=== PATIENT | male | born 1940 | race Caucasian/White ===

== ENCOUNTER 2019-12-18 15:44 | Outpatient (REF) | payer SELFPAY ==
[2019-12-18 16:41] LABS: HCT 27.8 % (40.0-50.0); HGB 8.8 g/dL (13.5-17.5); MCH 30.4 pg (27.0-33.0); MCHC 31.7 % (32.0-36.0); MCV 96.2 fL (80-95); MPV 9.8 fL (8.0-11.0); Nucleated RBC 0 %; Platelet Count 294 10^3/uL (130-400); RBC 2.89 10^6/uL (4.36-5.78); RDW 13.5 % (11.8-14.1); RDW-SD 47.7 fL; WBC 8.44 10^3/uL (4.4-10.8)
[2019-12-18 17:00] LABS: Anion Gap 6.8 mmol/L (3-11); BUN 34 mg/dL (7-18); CO2 27.2 mmol/L (21.0-32.0); CREATININE 1.47 mg/dL (0.70-1.30); Calcium 7.5 mg/dL (8.5-10.1); Chloride 105 mmol/L (98-107); Estimated GFR 45.98 (mL/min/1.73m2); Glucose 208 mg/dL (74-106); Potassium 4.8 mmol/L (3.5-5.1); Sodium 139 mmol/L (136-145)
[2019-12-18 17:17] LABS: Absolute Eosinophil Count 0.25 10^3/uL (0.0-0.7); Absolute Lymphocyte Count 1.35 10^3/uL (1.2-3.4); Absolute Monocyte Count 0.68 10^3/uL (0.1-0.8); Absolute Neutrophil Count 5.99 10^3/uL (1.2-6.7); Bands % 1
[2019-12-18 17:18] LABS: Basophilic Stippling 1+; Diff Comment Manual Differential; Myelocytes % 2; Polychromasia Present
[2019-12-18 17:20] LABS: C-Reactive Protein 6.13 mg/dL (0.0-0.3)
[2019-12-18 17:33] LABS: ESR 41 mm/hr (1-20)
== END 2019-12-18 16:04 ==
LOC: LBN 15:44
PROVIDERS: PCP Family Medicine; Visit Provider Family Medicine
DX: R50.9 Fever, unspecified (principal)
CPT/HCPCS: 80048; 85652; 85025; 86140

== ENCOUNTER 2019-12-20 15:08 | Outpatient (REF) | payer SELFPAY ==
[2019-12-22 20:05] LABS: COVID-19 RT-PCR Result Not Detected ((See Note))
== END 2019-12-20 15:28 ==
LOC: LBO 15:08
PROVIDERS: PCP Family Medicine; Visit Provider Nurse Practitioner Adult Health
DX: Z11.59 Encounter for screening for other viral diseases (principal)
CPT/HCPCS: U0003

== ENCOUNTER 2019-12-23 15:39 | Outpatient (REF) | payer SELFPAY ==
[2019-12-23 15:59] LABS: HCT 27.9 % (40.0-50.0); HGB 8.8 g/dL (13.5-17.5); MCH 30.9 pg (27.0-33.0); MCHC 31.5 % (32.0-36.0); MCV 97.9 fL (80-95); MPV 9.3 fL (8.0-11.0); Nucleated RBC 0 %; Platelet Count 468 10^3/uL (130-400); RBC 2.85 10^6/uL (4.36-5.78); RDW 14.1 % (11.8-14.1); RDW-SD 50.5 fL; WBC 9.51 10^3/uL (4.4-10.8)
[2019-12-23 16:32] LABS: ALT 49 U/L (16-63); AST 47 U/L (15-37); Albumin 2.5 g/dL (3.4-5.0); Alkaline Phosphatase 150 U/L (46-116); Anion Gap 8.3 mmol/L (3-11); BUN 34 mg/dL (7-18); Bilirubin, Total 0.7 mg/dL (0.2-1.0); CO2 26.7 mmol/L (21.0-32.0); CREATININE 1.36 mg/dL (0.70-1.30); Calcium 8.4 mg/dL (8.5-10.1); Chloride 107 mmol/L (98-107); Estimated GFR 50.29 (mL/min/1.73m2); Glucose 117 mg/dL (74-106); Sodium 142 mmol/L (136-145); Total Protein 5.4 g/dL (6.4-8.2)
[2019-12-23 16:45] LABS: Absolute Lymphocyte Count 2.19 10^3/uL (1.2-3.4); Absolute Monocyte Count 1.05 10^3/uL (0.1-0.8); Absolute Neutrophil Count 5.99 10^3/uL (1.2-6.7); Bands % 1; Diff Comment Manual Differential; Metamyelocytes % 1; Myelocytes % 1
[2019-12-23 16:46] LABS: Hypochromasia 1+; Polychromasia Present
== END 2019-12-23 15:59 ==
LOC: LBN 15:39
PROVIDERS: PCP Family Medicine; Visit Provider Nurse Practitioner Adult Health
DX: N17.9 Acute kidney failure, unspecified (principal)
CPT/HCPCS: 80053; 85025

== ENCOUNTER 2019-12-27 12:18 | Outpatient (REF) | payer SELFPAY ==
[2019-12-28 17:07] LABS: COVID-19 RT-PCR Result Not Detected ((See Note))
== END 2019-12-27 12:38 ==
LOC: LBN 12:18
PROVIDERS: PCP Family Medicine; Visit Provider Nurse Practitioner Adult Health
DX: Z11.59 Encounter for screening for other viral diseases (principal)
CPT/HCPCS: U0003

== ENCOUNTER → 2021-05-15 13:46 | Outpatient (BNVA) | payer MEDICARE, OTHER, SELFPAY | PROVIDERS: PCP Family Medicine; Referring Provider Family Medicine; Visit Provider Urology | DX: R39.89 Other symptoms and signs involving the genitourinary system (principal); R97.20 Elevated prostate specific antigen [PSA]; Z80.42 Family history of malignant neoplasm of prostate | CPT/HCPCS: 99204 ==

== ENCOUNTER 2021-05-26 00:20 | Outpatient (CLI) | payer MEDICARE, OTHER, SELFPAY ==
--- NOTE | 2021-05-26 07:30 | DI.US_ITS ---
Exam(s) US PROSTATE BIOPSY EXAM: US PROSTATE BIOPSY CLINICAL HISTORY: ultrasound guided biopsy,elevated psa,abnl prostate exam,r97.20,r39.89 TECHNIQUE: Ultrasound performed using standard protocol. Transrectal ultrasound. COMPARISON: No exams were available for comparison FINDINGS: Ultrasound was provided for Dr. Erickson for guidance with performing prostate biopsy. Prostate volume is calculated at 32 cc. Please see procedure note for details. DATA REPOSITORY:
--- NOTE | 2021-05-26 11:45 | PROST_PTH ---
PATIENT: Bakari Banda LOC: [facility] U#:[id number] AGE/SX: 80/M ROOM: RE05/26/[address]: Pedro Erickson MD : [id number] BED: DIS: 05/26/2021 SPEC #: [id number] RECD: 05/26/21 12:14 STATUS: [facility] #: [id number] KARYN: 05/26/21 11:[address]: Pedro Erickson DEPT: Surgical Specimen RECD BY: Nori Jackson ENTERED: 05/26/21 12:16 SP TYPE: PROST OTHR DR: Dieudonne Leahy Tissues: 1 - PROSTATE NEEDLE BIOPSY 2 - PROSTATE NEEDLE BIOPSY 3 - PROSTATE NEEDLE BIOPSY 4 - PROSTATE NEEDLE BIOPSY 5 - PROSTATE NEEDLE BIOPSY 6 - PROSTATE NEEDLE BIOPSY 7 - PROSTATE NEEDLE BIOPSY 8 - PROSTATE NEEDLE BIOPSY 9 - PROSTATE NEEDLE BIOPSY 10 - PROSTATE NEEDLE BIOPSY 11 - PROSTATE NEEDLE BIOPSY 12 - PROSTATE NEEDLE BIOPSY Procedures: GROSS AND MICRO LEVEL 4 Comments: [id number]
--- NOTE | 2021-05-26 11:51 | W.PM.OP ---
Date of service: 05/26/21 Time of Service: 11:51 Operative Note Operative Note DATE OF PROCEDURE: 05/26/21 PRE-OP DIAGNOSIS: 1. Elevated PSA 2. Abnormal prostate exam POST-OP DIAGNOSIS: same PROCEDURE: Transrectal ultrasound guided biopsy of the prostate SURGEON: Pedro Erickson ANESTHESIA TYPE: Local By Surgeon Refer to Anesthesia Record ESTIMATED BLOOD LOSS: 25 PATHOLOGY: other (Prostate biopsies) COMPLICATIONS: None Patient was transported to: no change Patient's condition: stable Implants: None Indications: This is an 80-year-old gentleman who has a history of an elevated PSA. He has been having worsening pelvic pain and there is concern that he may have metastatic disease from prostate cancer. His current PSA is 40 and his digital rectal exam shows firmness and enlargement on the right side of the prostate more so than the left. He presents now for biopsy Findings: Prostate volume 32 cc Procedure Description: The patient was given a preprocedural antibiotic and mechanical bowel prep. He was brought to the radiology suite on 05/26/2021. He was placed in the left lateral position. Transrectal imaging of the prostate was performed using a variable megahertz transducer. The prostate was imaged in transverse and longitudinal planes. The prostatic volume was measured at 32 cc. The entire peripheral zone appeared hypoechoic relative to the transition zone. The seminal vesicles appeared fairly normal. A periprosthetic nerve block was performed. A total of 12 laterally directed biopsies were taken, labeled and sent to pathology for permanent section. The patient tolerated this procedure well. He was cautioned about the possibility of blood in the urine, blood in the stool and blood in the semen. He was also cautioned about the possibility of urosepsis.
== END 2021-05-26 00:40 ==
PROVIDERS: PCP Family Medicine; Visit Provider Urology
DX: R39.89 Other symptoms and signs involving the genitourinary system (principal); R97.20 Elevated prostate specific antigen [PSA]; C61 Malignant neoplasm of prostate
CPT/HCPCS: 55700; 76942; 88305

== ENCOUNTER → 2021-06-09 08:07 | Outpatient (BNVA) | payer MEDICARE, OTHER, SELFPAY | PROVIDERS: PCP Family Medicine; Referring Provider Family Medicine; Visit Provider Urology | DX: C61 Malignant neoplasm of prostate (principal); N28.89 Other specified disorders of kidney and ureter | CPT/HCPCS: 99443 ==

== ENCOUNTER → 2021-09-14 11:12 | Outpatient (BNVA) | payer MEDICARE, OTHER, SELFPAY | PROVIDERS: PCP Family Medicine; Referring Provider Family Medicine; Visit Provider Urology | DX: N28.89 Other specified disorders of kidney and ureter (principal); C61 Malignant neoplasm of prostate | CPT/HCPCS: 99213 ==